=== PATIENT | female | born 1965 ===

== ENCOUNTER 2023-04-28 22:07 | Emergency (ER) | payer BC ==
--- OUTSIDE RECORDS SUMMARY | 2023-04-28 22:10 | XMS REPORT | Continuity of Care Document ---
:[address] [facility] [place], [place] t Address [address] [place] [address] [address] [place] [address] Care Team Providers Name Role Phone Mariza Attending Clinician Unavailable Sky Crespo Attending Clinician Unavailable Cooley_OBrien_K Attending Clinician Unavailable Mariza Admitting Clinician Unavailable Sky Crespo Admitting Clinician Unavailable Cooley_OBrien_K Admitting Clinician Unavailable Payers Payer Name Policy Type Policy Number Effective Date Expiration Date S [place] [id number] 2020 00:00:00 [place] Problems Condition Condition Condition Status Onset Resolution Last Treating Co mments Source Name Details Category Date Date Treatment Clinician Date Swelling Swelling Problem Active Meza ge of eyelid of Eyelid 3-06 Fami ly 00:00: Practic 00 e Essential Essential Problem Active Mally david hypertensi Hypertensi 3-06 Fa alla on on 00:00: Practic 00 e Asthma Asthma Problem Active [facility] 3-06 Family 00:00: Practic 00 e Allergic Allergic Problem Active Meza ge contact Contact 3-06 Family dermatitis Dermatitis 00:00: Pr actic of eyelid of Eyelid 00 e Allergies, Adverse Reactions, Alerts Allergy Allergy Status Severity Reaction(s) Onset Inactive Treating Comm ents Source Name Type Date Date Clinician No Known DA Active U [facility] Contrast 5-14 Clear Allergie 00:[facility]: [facility] No Known DA Active U [facility] Drug 5-14 Clear Allergie 00:00: [facility] No Known DA Active U 2008- [facility] Food 5-14 Clear Allergie 00:00: [facility] No Known DA Active U [facility] Other - Clear Allergie 00:00: [facility] No Known DA Active U [facility] Drug 03-07 Clear Intolera 00:00: [facility] No Known DA Active U [facility] Drug 03-07 Clear Intolera 00:00: [facility] Medications Ordered Filled Start Stop Current Ordering Indication Dosage Frequency Signature Comments Components Source Medication Medication Date Date Medication? Clinician (SIG) Name Name Tomasa Randolph No Tomasa barry Aerosphere Aerosphere Aerosphere Family 160 160 160 Practic mcg-9mcg-4. mcg-9mcg-4. mcg-9mcg-4 e 8mcg/actuat 8mcg/actuat .8mcg/actu ion HFA ion HFA ation HFA aerosol aerosol aerosol inhaler inhaler inhaler INHALE 2 INHALE 2 INHALE 2 PUFFS BY PUFFS BY PUFFS BY MOUTH TWICE MOUTH TWICE MOUTH DAILY. DAILY. TWICE RINSE MOUTH RINSE MOUTH DAILY. / DRINK / DRINK RINSE AFTER USE AFTER USE MOUTH / DRINK AFTER USE losartan 50 losartan 50 No losartan [place] mg-hydrochl mg-hydrochl 50 F amily orothiazide orothiazide mg-hydroch Practic 12.5 mg 12.5 mg lorothiazi e tablet TAKE tablet TAKE de 12.5 mg 1 TABLET BY 1 TABLET BY tablet MOUTH EVERY MOUTH EVERY TAKE 1 DAY DAY TABLET BY MOUTH EVERY DAY prednisone prednisone No prednisone [place] 10 mg 10 mg 10 mg Family tablet Take tablet Take tablet Practic 3 tabs by 3 tabs by Take 3 e mouth Day1, mouth Day1, tabs by 2tabs Day2, 2tabs Day2, mouth 1 tab Day3, 1 tab Day3, Day1, 1/2 tab 1/2 tab 2tabs Day4&5. Day4&5. Day2, 1 Take with Take with tab Day3, breakfast. breakfast. 1/2 tab Day4&5. Take with breakfast. Immunizations Ordered Immunization Filled Immunization Date Status Commen ts Source Name Name COVID-19, mRNA, COVID-19, mRNA, 2021-12-04 Completed [facility] LNP-S, PF, 100 LNP-S, PF, 100 00:00:00 Practi ce mcg/0.5 mL dose mcg/0.5 mL dose (Moderna) (Moderna) influenza, influenza, 2021-11-02 Completed [facility] injectable, injectable, 00:00:00 Practice quadrivalent quadrivalent COVID-19, mRNA, COVID-19, mRNA, 2020-12-30 Completed [facility] LNP-S, PF, 100 LNP-S, PF, 100 00:00:00 Practi ce mcg/0.5 mL dose mcg/0.5 mL dose (Moderna) (Moderna) Vital Signs Vital Name Observation Time Observation Value Comments Source BP Diastolic 2022-01-03 00:00:00 79 mm[Hg] [facility] Height 2022-01-03 00:00:00 66 [in_i] [facility] BMI (Body Mass 2022-01-03 00:00:00 40 kg/m2 [facility] BP Systolic 2022-01-03 00:00:00 129 mm[Hg] [facility] Body Weight 2022-01-03 00:00:00 248 [lb_av] [facility] Procedures Procedure Date / Time Performed Performing Clinician [facility] e Delivery [facility] Plan of Care Planned Activity Planned Date Details Comments Source Instructions [facility] Encounters Start End Encounter Admission Attending Care Care Encounter Source Date/Time Date/Time Type Type Clinicians Facility Department ID 2023-01-31 2023-01-31 Outpatient Yerramadha_ VFP VFP [id number] [facility] 00:00:00 00:00:00 M [id number] Family Practic e 2022-09-08 2022-09-08 Outpatient JESSICA Crespo, [facility] JESSICA [id number] [facility] 11:18:00 11:18:00 Sky Gonsalez [facility] 2022-07-30 2022-07-30 Outpatient Cooley_OBri VFP VFP [id number] [facility] 00:00:00 00:00:00 en_K [id number] Family Practic e 2022-03-13 2022-03-13 Outpatient Cooley_OBri VFP VFP [id number] [facility] 12:30:00 12:30:00 en_K [id number] Family Practic e 2022-03-08 2022-03-08 Outpatient Cooley_OBri VFP VFP [id number] [facility] 01:21:00 01:21:00 en_K [id number] Family Practic e 2022-02-01 2022-02-01 Outpatient Cooley_OBri VFP VFP [id number] [facility] 12:51:00 12:51:00 en_K [id number] Family Practic e 2022-01-03 2022-01-03 Outpatient Cooley_OBri VFP VFP [id number] [facility] 04:13:00 04:13:00 en_K [id number] Family Practic e 2022-01-03 2022-01-03 Larissa L VFP [place] - [id number] [facility] 00:00:00 00:00:00 Gonzalez-O'B [facility] olu colmenares [facility] - Practi PASUP: VM_HOU_Spac e [id number] ([facility]) [facility], [address], [place] [address] , Ph. 2021-09-02 2021-09-02 Outpatient JESSICA Crespo, [facility] [id number] [facility] 12:00:00 12:00:00 Sky 10 [facility] 2020-06-04 2020-06-04 Outpatient JESSICA Crespo, [facility] JESSICA [id number] [facility] 12:00:00 12:00:00 Sky 78 [facility] Results This patient has no known results.
[2023-04-28] MEDS ORDERED: TETRACAINE HCL 0.5% 4ML OPTH ONE (22:37)
--- NOTE | 2023-04-28 22:56 | EDPHYS ---
Physician Documentation [facility] Name: Kimmei Celestin Age: 57 yrs Sex: Female : 1965 Arrival Date: 04/28/2023 Time: 22:07 Bed 15 Private MD: ED Physician Jimmy Bianchi HPI: 04/28 22:17 This 57 yrs old Female presents to ER via Unassigned with complaints of sp4 Vision Problem. 22:48 57-year-old female with history of hypertension and asthma presents with acute floaters sp4 and flashes of light in the left eye starting this evening. Patient does not have any pain in the left eye denied any visual loss. She wears bifocal glasses. . Patient called nurse hotline and was advised to go to the nearest emergency room.. Historical: - Allergies: 22:30 No Known Allergies; lg3 - Home Meds: 22:30 losartan-hydrochlorothiazide oral [Active]; Trelegy Ellipta inhalation [Active]; lg3 - PMHx: 22:30 HTN; Asthma; lg3 - PSHx: 22:30 section; lg3 - Immunization history:: Adult Immunizations up to date, Client reports receiving the 2nd dose of the Covid vaccine. - Social history:: Smoking status: Patient denies any tobacco usage or history of. Patient uses alcohol, occasionally. - Family history:: not pertinent. ROS: 22:48 Constitutional: Negative for fever, chills, and weight loss. sp4 23:02 Eyes: Negative for injury, pain, redness, and discharge, positive for floaters and sp4 flashes of light in the eye 23:02 All other systems are negative. Exam: 23:02 Constitutional: This is a well developed, well nourished patient who is awake, alert, sp4 and in no acute distress. Head/Face: Normocephalic, atraumatic. 23:02 ENT: Nares patent. No nasal discharge, no septal abnormalities noted. Tympanic membranes are normal and external auditory canals are clear. Oropharynx with no redness, swelling, or masses, exudates, or evidence of obstruction, uvula midline. Mucous membranes moist. Neck: Trachea midline, no thyromegaly or masses palpated, and no cervical lymphadenopathy. Supple, full range of motion without nuchal rigidity, or vertebral point tenderness. Chest/axilla: Normal chest wall appearance and motion. Nontender with no deformity. No lesions are appreciated. Cardiovascular: Regular rate and rhythm with a normal S1 and S2. No gallops, murmurs, or rubs. Normal PMI, no JVD. No pulse deficits. Respiratory: Lungs have equal breath sounds bilaterally, clear to auscultation and percussion. No rales, rhonchi or wheezes noted. No increased work of breathing, no retractions or nasal flaring. Abdomen/GI: Soft, non-tender, with normal bowel sounds. No distension or tympany. No guarding or rebound. No evidence of tenderness throughout. Back: No spinal tenderness. No costovertebral tenderness. Skin: Warm, dry with normal turgor. Normal color with no rashes, no lesions, and no evidence of cellulitis. MS/ Extremity: Pulses equal, no cyanosis. Neurovascular intact. Full, normal range of motion. Neuro: Awake and alert, GCS 15, oriented to person, place, time, and situation. Cranial nerves II-XII grossly intact. Motor strength 5/5 in all extremities. Sensory grossly intact. Psych: Awake, alert, with orientation to person, place and time. Behavior, mood, and affect are within normal limits 23:02 Eyes: Exam is negative for drainage, edema, erythema, exudate, Pupils: equal, round, and reactive to light and accomodation, Extraocular movements: intact throughout, Lids and lashes: appear normal, funduscopic exam reveals no obvious abnormalities, discs that are sharp, no appreciated papilledema, Visual moy: are intact, Left eye was examined with ultrasound which reveals no signs of retinal detachment. Vitreous humor visualized and retina was visualized without signs of significant floaters in the vitreous humor. . 23:02 Eyes: Intraocular pressure: right eye = 14mmHg, left eye = 17mmHg. sp4 Vital Signs: 22:26 BP 158 / 82; Pulse 100; Resp 18 S; Temp 97.9(O); Pulse Ox 100% ; Weight 113.4 kg (R); lg3 Height 5 ft. 7 in. (R); 22:26 Body Mass Index 39.16 (113.40 kg, 170.18 cm) lg3 MDM: 22:55 Patient medically screened. sp4 23:02 Differential Diagnosis Vitreous detachment, retinal detachment, eye flashes, vitreous sp4 floaters. 23:02 Data reviewed: vital signs, nurses notes. ED course: There is no sign of painful vision sp4 loss and eye pressures are normal today ruling out glaucoma. Ultrasound visualization of the left eye ruled out sign of retinal detachment. Examination of the optic disks excluded papilledema. Patient may have signs of vitreous detachment. Based on the recommendations - therapy is not required or indicated in posterior vitreous detachment, unless there are associated retinal tears, which need to be repaired. In absence of retinal tears, the usual progress is that the vitreous humor will continue to age and liquefy and floaters will usually become less and less noticeable, and eventually most symptoms will completely disappear. Prompt examination of patients experiencing vitreous humor floaters combined with expeditious treatment of any retinal tears has been suggested as the most effective means of preventing certain types of retinal detachments. . ED course: Patient will be advised to see side gluer for dilated eye exam here in [place] or in the [facility] where she resides in the next 7 days. At this time patient is stable for discharge home. . Administered Medications: 23:04 Drug: Tetracaine Ophthalmic Drops 0.5 % 1 drops {Note: Administered by eliceo He MD.} Route: Ophthalmic; Site: left eye; 23:05 Follow up: Response: No adverse reaction ll3 Disposition Summary: 04/28/23 22:55 Discharge Ordered Location: Home sp4 Problem: new sp4 Symptoms: are unchanged sp4 Condition: Stable sp4 Diagnosis - Vitreous floaters sp4 Followup: sp4 - With: Private Physician - When: 7 - 10 days - Reason: Recheck today's complaints Followup: sp4 - With: Rojelio Matson MD - When: 1 week - Reason: Recheck today's complaints Discharge Instructions: - Discharge Summary Sheet sp4 - Vitreous Detachment sp4 Forms: - [email or web address] sp4 Signatures: Melvina Ford RN RN 3 Letty Wong RN RN ll3 Jimmy Bianchi MD MD sp4
--- NOTE | 2023-04-28 22:56 | ER ---
Nurse's Notes [facility] Name: Kimmie Celestin Age: 57 yrs Sex: Female : 1965 Arrival Date: 04/28/2023 Time: 22:07 Bed 15 Private MD: Diagnosis: Vitreous floaters Presentation: 04/28 22:26 Chief complaint: Patient states: earlier today i had a black floater in my left eye and lg3 tonight im seeing flashes when its dark. denies pain. Coronavirus screen: Client denies travel out of the [place] in the last 14 days. At this time, the client does not indicate any symptoms associated with coronavirus-19. Ebola Screen: No symptoms or risks identified at this time. Initial Sepsis Screen: Does the patient meet any 2 criteria? No. Patient's initial sepsis screen is negative. Does the patient have a suspected source of infection? No. Patient's initial sepsis screen is negative. Risk Assessment: Do you want to hurt yourself or someone else? Patient reports no desire to harm self or others. Onset of symptoms was April 28, 2023. 22:26 Method Of Arrival: Ambulatory lg3 22:26 Acuity: OSEI 3 lg3 Triage Assessment: 22:30 General: Appears in no apparent distress. comfortable, Behavior is calm, cooperative. lg3 Pain: Denies pain. EENT: No deficits noted. Reports floaters and flashes of light in left eye. Neuro: No deficits noted. Marshall Agitation-Sedation Scale (RASS): 0 - Alert and Calm Level of Consciousness is awake, alert, obeys commands, Oriented to person, place, time, situation. Cardiovascular: No deficits noted. Denies chest pain, shortness of breath. Respiratory: No deficits noted. Airway is patent Respiratory effort is even, unlabored, Respiratory pattern is regular, symmetrical. GI: No deficits noted. No signs and/or symptoms were reported involving the gastrointestinal system. : No deficits noted. No signs and/or symptoms were reported regarding the genitourinary system. Derm: No deficits noted. No signs and/or symptoms reported regarding the dermatologic system. Musculoskeletal: No deficits noted. No signs and/or symptoms reported regarding the musculoskeletal system. Circulation, motion, and sensation intact. Range of motion: intact in all extremities. Historical: - Allergies: 22:30 No Known Allergies; lg3 - Home Meds: 22:30 losartan-hydrochlorothiazide oral [Active]; Trelegy Ellipta inhalation [Active]; lg3 - PMHx: 22:30 HTN; Asthma; lg3 - PSHx: 22:30 section; lg3 - Immunization history:: Adult Immunizations up to date, Client reports receiving the 2nd dose of the Covid vaccine. - Social history:: Smoking status: Patient denies any tobacco usage or history of. Patient uses alcohol, occasionally. - Family history:: not pertinent. Screenin:14 [facility] ED Fall Risk Assessment (Adult) History of falling in the last 3 months, ll3 including since admission No falls in past 3 months (0 pts) Confusion or Disorientation No (0 pts) Intoxicated or Sedated No (0 pts) Impaired Gait No (0 pts) Mobility Assist Device Used No (0 pt) Altered Elimination No (0 pt) Score/Fall Risk Level 0 - 2 = Low Risk Oriented to surroundings, Maintained a safe environment, Educated pt \T\ family on fall prevention, incl call for assistance when getting out of bed. Abuse screen: Denies threats or abuse. Denies injuries from another. Nutritional screening: No deficits noted. Tuberculosis screening: No symptoms or risk factors identified. Assessment: 22:30 General: See triage. ll3 Vital Signs: 22:26 BP 158 / 82; Pulse 100; Resp 18 S; Temp 97.9(O); Pulse Ox 100% ; Weight 113.4 kg (R); lg3 Height 5 ft. 7 in. (R); 22:26 Body Mass Index 39.16 (113.40 kg, 170.18 cm) lg3 ED Course: 22:08 Patient arrived in ED. ag3 22:17 Jimmy Bianchi MD is Attending Physician. sp4 22:30 Triage completed. lg3 22:30 Arm band placed on right wrist. lg3 22:57 Rojelio Matson MD is Referral Physician. sp4 23:15 Patient has correct armband on for positive identification. Bed in low position. Call ll3 light in reach. Side rails up X 1. 23:15 No provider procedures requiring assistance completed. Patient did not have IV access ll3 during this emergency room visit. Administered Medications: 23:04 Drug: Tetracaine Ophthalmic Drops 0.5 % 1 drops {Note: Administered by eliceo He MD.} Route: Ophthalmic; Site: left eye; 23:05 Follow up: Response: No adverse reaction ll3 Medication: 23:15 VIS not applicable for this client. ll3 Outcome: 22:55 Discharge ordered by . sp4 23:15 Discharged to home ambulatory, with family. ll3 23:15 Condition: stable 23:15 Discharge instructions given to patient, Instructed on discharge instructions, follow up and referral plans. Demonstrated understanding of instructions, follow-up care. 23:16 Patient left the ED. 3 Signatures: Jeanette Ley3 Melvina Ford RN RN 3 Letty Wong RN RN ll3 Jimmy Bianchi MD MD sp4
[2023-04-28 23:22] VITALS: BP 158/82; TEMP 97.9; O2SAT 100
== END 2023-04-28 23:16 | disposition home or self-care (01) ==
LOC: ER 22:07
DX: H43.399 Other vitreous opacities, unspecified eye (principal); I10 Essential (primary) hypertension; J45.909 Unspecified asthma, uncomplicated